=== PATIENT | female | born 1960 | race Two or more races ===

== ENCOUNTER 2017-11-18 23:20 | Emergency (ER) | payer SELFPAY ==
[~2017-11-18] VITALS: Ht 167.6 cm; Wt 78.9 kg
--- NOTE | 2017-11-18 23:24 | NUR ---
PT BIBRA FR STREETS FOR ETOH INTOXICATION. PT RESP EVEN & UNLABORED, SLEEPING, RESPONDS TO PAINFUL STIMULI, REFUSING TO ANSWER QUESTIONS, CLOTHING UNKEMPT, DISSHEVELED, LYING IN LT SIDE LYING POSITION, ON CONTINUOUS PULSE-OX W/ MONITORING. BED LOW TO GROUND W/ SIDE-RAILS UP FOR SAFETY.
[2017-11-19 00:37] VITALS: BP 161/77
--- NOTE | 2017-11-19 00:39 | NUR ---
PT CONTINUES TO SLEEP IN BED W/ RESP EVEN & UNLABORED, NAD NOTED. WILL CONTINUE TO MONITOR.
--- NOTE | 2017-11-19 01:40 | NUR ---
pt continues to sleep in bed w/ sheet over head, resp even & unlabored, no acute distress noted.
--- NOTE | 2017-11-19 02:20 | NUR ---
no change in pt status. pt continues to sleep in bed w/ nad noted.
--- NOTE | 2017-11-19 03:45 | NUR ---
pt continues to sleep, arousable w/ tactile stimuli w/ nad noted.
--- NOTE | 2017-11-19 06:21 | NUR ---
PT AROUSABLE, AOX3, PT REFUSED V/S AT THIS TIME. RISK AND BENEFITS EXPLAIN X3. PT STATES " NOT RIGHT NOW, I WANT TO SLEEP" MD GALVEZ
--- NOTE | 2017-11-19 07:00 | NUR ---
PT AOX3, PT NOTED WITH STEADY GATE. PT LEFT WITHOUT D/C PAPERS.
== END 2017-11-19 07:02 | disposition left against medical advice (07) ==
LOC: EDBD 23:23 → ER 23:23
DX: S00.83XA Contusion of other part of head, initial encounter (principal); F10.129 Alcohol abuse with intoxication, unspecified; R41.82 Altered mental status, unspecified; Y90.9 Presence of alcohol in blood, level not specified; X58.XXXA Exposure to other specified factors, initial encounter; Y93.89 Activity, other specified; Y92.89 Other specified places as the place of occurrence of the external cause; Y99.8 Other external cause status
CPT/HCPCS: 70450; 82962; 99284; A4606 ×2; Z7610 ×2